=== PATIENT | male | born 1995 | race Two or more races ===

== ENCOUNTER 2019-10-05 00:01 | Emergency (ER) | payer MEDICAID ==
--- NOTE | 2019-10-05 00:23 | ERPHSYRPT ---
- History of Present Illness Source: patient Timing/Duration: yesterday Severity of Symptoms-Max: moderate Severity of Symptoms-Current: moderate Suicidal thoughts: specific plan Associated Symptoms: depressed, ingestion ([place]), suicidal ideation Previous symptoms: same symptoms as today (Suicidal thoughts but never treated or admitted) Hx Tetanus, Diphtheria Vaccination/Date Given: Yes Hx Influenza Vaccination/Date Given: No Hx Pneumococcal Vaccination/Date Given: No <JESSICA GUZMAN - Last Filed: 10/05/19 06:49> <GAEL QUINONEZ - Last Filed: 10/05/19 15:46> - History of Present Illness Time Seen by Provider: 10/05/19 00:18 Physician History: Patient is a 24-year-old male who presents with suicidal ideation. He does have a plan to cut his throat. He has a history of suicidal ideation and depression but has never received treatment or been hospitalized. He claims not to have access to firearms. He denies any ingestion of anything except amount of alcohol earlier in the day and evening he did call [facility] in an attempt to be directly admitted but was instructed to come to this ER for evaluation. (JESSICA GUZMAN) Allergies/Adverse Reactions: No Known Drug Allergies Allergy (Verified 10/05/19 01:21) Home Medications: No Reportable Medications [No Reported Medications] 10/05/19 [History] - Past Medical History Pertinent Past Medical History: Yes Respiratory History: Asthma - Past Surgical History Past Surgical History: No - Social History Smoking Status: Never smoker Exposure to second hand smoke: No Drug Use: none Patient Lives Alone: No <JESSICA GUZMAN - Last Filed: 10/05/19 06:49> - Review of Systems Constitutional: No Fever, No Chills Eyes: No Symptoms Ears, Nose, & Throat: No Symptoms Respiratory: No Cough, No Dyspnea Cardiac: No Chest Pain, No Edema, No Syncope Abdominal/Gastrointestinal: No Abdominal Pain, No Nausea, No Vomiting, No Diarrhea Genitourinary Symptoms: No Dysuria Musculoskeletal: No Back Pain, No Neck Pain Skin: No Rash Neurological: No Dizziness, No Focal Weakness, No Sensory Changes Psychological: Depression, Suicidal Ideations Endocrine: No Symptoms All Other Systems: Reviewed and Negative <JESISCA GUZMAN - Last Filed: 10/05/19 06:49> - Physical Exam General Appearance: moderate distress Eyes, Ears, Nose, Throat Exam: normal ENT inspection, moist mucous membranes Neck Exam: normal inspection, non-tender, supple Respiratory Exam: normal breath sounds, lungs clear, No respiratory distress Cardiovascular Exam: regular rate/rhythm, No edema Gastrointestinal/Abdominal Exam: soft, No tenderness, No distention Extremities Exam: normal inspection, normal range of motion, No evidence of injury, No edema Current Suicidality: denies suicide plan Neurological Exam: alert, 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, oriented x 3, depressed affect Appearance: appropriate appearance, no memory impairment Behavior/Eye Contact/Speech: alert & cooperative, decreased rate of speech, No intoxicated appearance Thoughts/Hallucinations: normal thought pattern Skin Exam: normal color, warm, dry, No rash SpO2 Interpretation: normal O2 Delivery: Room Air <JESSICA GUZMAN - Last Filed: 10/05/19 06:49> - Nursing Vital Signs Nursing Vital Signs: Initial Vital Signs Temperature 98.2 F 10/05/19 00:18 Pulse Rate 96 H 10/05/19 00:18 Respiratory Rate 16 10/05/19 00:18 Blood Pressure 141/96 10/05/19 00:18 O2 Sat by Pulse Oximetry 97 10/05/19 00:18 Pain Scale Pain Intensity 0 - Course Nursing assessment & vital signs reviewed: Yes <JESSICA GUZMAN - Last Filed: 10/05/19 06:49> Ordered Tests: Active Orders 24 hr Category Date Time Status ACETAMINOPHEN Stat Lab 10/05/19 00:30 Completed CBC W DIFF Stat Lab 10/05/19 00:30 Completed CMP Stat Lab 10/05/19 00:30 Completed ETHYL ALCOHOL Stat Lab 10/05/19 00:30 Completed ETHYL ALCOHOL Stat Lab 10/05/19 04:55 Completed SALICYLATE Stat Lab 10/05/19 00:30 Completed UA W/RFX UR CULTURE Stat Lab 10/05/19 00:30 Completed Urine Triage Profile Stat Lab 10/05/19 00:30 Completed Lab/Rad Data: Laboratory Result Diagrams 10/05/19 00:30 10/05/19 00:30 Laboratory Results 10/05/19 10/05/19 10/05/19 Range/Units 04:55 00:30 00:30 WBC (4.0-10.5) K/mm3 RBC (4.1-5.6) M/mm3 Hgb (12.5-18.0) gm/dl Hct (42-50) % MCV (78-100) fl MCH (26-32) pg MCHC (32-36) g/dl RDW (11.5-14.0) % Plt Count (150-450) K/mm3 MPV (7.5-11.0) fl Gran % (36.0-66.0) % Eos # (Auto) (0-0.5) Absolute Lymphs (auto) (1.0-4.6) Absolute Monos (auto) (0.0-1.3) Lymphocytes % (24.0-44.0) % Monocytes % (0.0-12.0) % Eosinophils % (0.00-5.0) % Basophils % (0.0-0.4) % Absolute Granulocytes (1.4-6.9) Basophils # (0-0.4) Sodium (137-145) mmol/L Potassium (3.5-5.1) mmol/L Chloride (98-107) mmol/L Carbon Dioxide (22-30) mmol/L Anion Gap (5-15) MEQ/L BUN (9-20) mg/dL Creatinine (0.66-1.25) mg/dL Estimated GFR ML/MIN Glucose (74-106) mg/dL Calcium (8.4-10.2) mg/dL Total Bilirubin (0.2-1.3) mg/dL AST (17-59) U/L ALT (0-50) U/L Alkaline Phosphatase (38-126) U/L Serum Total Protein (6.3-8.2) g/dL Albumin (3.5-5.0) g/dL Urine Color STRAW (YELLOW) Urine Appearance CLEAR (CLEAR) Urine pH 6.0 (5-6) Ur Specific [place] 1.004 (1.005-1.025) Urine Protein NEGATIVE (Negative) Urine Ketones NEGATIVE (NEGATIVE) Urine Blood NEGATIVE (0-5) Malachi/ul Urine Nitrite NEGATIVE (NEGATIVE) Urine Bilirubin NEGATIVE (NEGATIVE) Urine Urobilinogen NEGATIVE (0-1) mg/dL Ur Leukocyte Esterase NEGATIVE (NEGATIVE) Urine WBC (Auto) NONE (0-5) /HPF Urine RBC (Auto) NONE (0-2) /HPF U Hyaline Cast (Auto) 0-2 (0-2) /LPF U Epithel Cells (Auto) NONE (FEW) /HPF Urine Bacteria (Auto) NONE (NEGATIVE) /HPF Urine Mucus (Auto) SLIGHT (NEGATIVE) /HPF Urine Culture Reflexed NO (NO) Urine Glucose NEGATIVE (NEGATIVE) mg/dL Salicylates (2-20) mg/dL Urine Opiates Level NEGATIVE (NEGATIVE) Ur Methadone NEGATIVE (NEGATIVE) Acetaminophen (10-30) ug/ml Urine Barbiturates NEGATIVE (NEGATIVE) Ur Phencyclidine (PCP) NEGATIVE (NEGATIVE) Urine Amphetamine NEGATIVE (NEGATIVE) U Benzodiazepine Level NEGATIVE (NEGATIVE) Urine Cocaine NEGATIVE (NEGATIVE) Urine Marijuana (THC) NEGATIVE (NEGATIVE) Ethyl Alcohol 88 H (0-10) mg/dL 10/05/19 10/05/19 Range/Units 00:30 00:30 WBC 6.6 (4.0-10.5) K/mm3 RBC 4.72 (4.1-5.6) M/mm3 Hgb 14.0 (12.5-18.0) gm/dl Hct 41.4 L (42-50) % MCV 87.7 (78-100) fl MCH 29.7 (26-32) pg MCHC 33.8 (32-36) g/dl RDW 13.9 (11.5-14.0) % Plt Count 349 (150-450) K/mm3 MPV 10.2 (7.5-11.0) fl Gran % 43.4 (36.0-66.0) % Eos # (Auto) 0.29 (0-0.5) Absolute Lymphs (auto) 2.65 (1.0-4.6) Absolute Monos (auto) 0.76 (0.0-1.3) Lymphocytes % 40.2 (24.0-44.0) % Monocytes % 11.5 (0.0-12.0) % Eosinophils % 4.4 (0.00-5.0) % Basophils % 0.5 (0.0-0.4) % Absolute Granulocytes 2.86 (1.4-6.9) Basophils # 0.03 (0-0.4) Sodium 144 (137-145) mmol/L Potassium 3.5 (3.5-5.1) mmol/L Chloride 111 H (98-107) mmol/L Carbon Dioxide 23 (22-30) mmol/L Anion Gap 14.0 (5-15) MEQ/L BUN 8 L (9-20) mg/dL Creatinine 0.80 (0.66-1.25) mg/dL Estimated GFR > 60.0 ML/MIN Glucose 98 (74-106) mg/dL Calcium 9.3 (8.4-10.2) mg/dL Total Bilirubin 0.40 (0.2-1.3) mg/dL AST 32 (17-59) U/L ALT 22 (0-50) U/L Alkaline Phosphatase 84 (38-126) U/L Serum Total Protein 7.2 (6.3-8.2) g/dL Albumin 4.2 (3.5-5.0) g/dL Urine Color (YELLOW) Urine Appearance (CLEAR) Urine pH (5-6) Ur Specific [place] (1.005-1.025) Urine Protein (Negative) Urine Ketones (NEGATIVE) Urine Blood (0-5) Malachi/ul Urine Nitrite (NEGATIVE) Urine Bilirubin (NEGATIVE) Urine Urobilinogen (0-1) mg/dL Ur Leukocyte Esterase (NEGATIVE) Urine WBC (Auto) (0-5) /HPF Urine RBC (Auto) (0-2) /HPF U Hyaline Cast (Auto) (0-2) /LPF U Epithel Cells (Auto) (FEW) /HPF Urine Bacteria (Auto) (NEGATIVE) /HPF Urine Mucus (Auto) (NEGATIVE) /HPF Urine Culture Reflexed (NO) Urine Glucose (NEGATIVE) mg/dL Salicylates 1.0 L (2-20) mg/dL Urine Opiates Level (NEGATIVE) Ur Methadone (NEGATIVE) Acetaminophen < 10 L (10-30) ug/ml Urine Barbiturates (NEGATIVE) Ur Phencyclidine (PCP) (NEGATIVE) Urine Amphetamine (NEGATIVE) U Benzodiazepine Level (NEGATIVE) Urine Cocaine (NEGATIVE) Urine Marijuana (THC) (NEGATIVE) Ethyl Alcohol 161 H (0-10) mg/dL - Progress Progress: unchanged <JESSICA GUZMAN - Last Filed: 10/05/19 06:49> - Progress Progress: improved, re-examined Counseled pt/family regarding: diagnosis, need for follow-up <GAEL QUINONEZ - Last Filed: 10/05/19 15:46> - Progress Progress Note: 10/05/19 patient is checked out to me at end of Dr. Guzman shift with pending [facility]/psych evaluation. On my evaluation patient reports that he has been going through a lot recently and that make him angry and that is why he thought about committing suicide but he does not want to do it now. Also patient was intoxicated on presentation. Asked patient and his girlfriend multiple times in different ways and patient denied any suicidal intent now. As per girlfriend patient started drinking last night and his suicidal thoughts got worse. But currently he is not. [facility] has evaluated patient and do not think patient is an imminent threat to himself or anyone else. He has a good support system with his girlfriend who will take her home and will watch her. He signed a safety contract and is being discharged with outpatient [facility] follow-up. This with patient and girlfriend detail about symptoms/signs of worsening needing return to ER or call 911 which do seem understanding. (GAEL QUINONEZ) <JESSICA GUZMAN - Last Filed: 10/05/19 06:49> - Departure Departure Disposition: Home Critical Care Time: No <GAEL QUINONEZ - Last Filed: 10/05/19 15:46> - Departure Clinical Impression: Depressive disorder, Alcohol abuse Condition: Stable Referrals: DOCTOR,NO FAMILY [Primary Care Provider] - DESHAUN POPE [ACTIVE STAFF] - (Call for appointment in 1 to 2 days.) Instructions: Depression, Adult (DC), Suicide Prevention Additional Instructions: Call [facility] for appointment in 1 to 2 days at [phone]. Follow-up with primary care physician for reevaluation in 1 to 2 days. Call 911 or return to ER if again has worsening depressive symptoms or suicidal ideations/ plans. Cut down on your drinking.
[2019-10-05 00:36] LABS: Absolute Neutrophil Ct (ANC) 2.86 (1.4-6.9); BASOPHIL % 0.5 % (0.0-0.4); Basophil (Absolute #) 0.03 (0-0.4); Eosinophil % 4.4 % (0.00-5.0); Eosinophil (Absolute #) 0.29 (0-0.5); Hematocrit 41.4 % (42-50); Lymphocyte (Absolute #) 2.65 (1.0-4.6); Lymphocytes % 40.2 % (24.0-44.0); Mean Cell Volume 87.7 fl (78-100); Mean Corpuscular Hemoglobin 29.7 pg (26-32); Mean Corpuscular Hgb Concent. 33.8 g/dl (32-36); Mean Platelet Volume 10.2 fl (7.5-11.0); Monocyte (Absolute #) 0.76 (0.0-1.3); Monocytes % 11.5 % (0.0-12.0); Neutrophil % 43.4 % (36.0-66.0); Platelet Count 349 K/mm3 (150-450); Red Blood Count 4.72 M/mm3 (4.1-5.6); Red Cell Distribution Width 13.9 % (11.5-14.0); White Blood Count 6.6 K/mm3 (4.0-10.5)
[2019-10-05 00:55] LABS: ALBUMIN 4.2 g/dL (3.5-5.0); ALKALINE PHOSPHATASE 84 U/L (38-126); BLOOD UREA NITROGEN 8 mg/dL (9-20); CHLORIDE 111 mmol/L (98-107); Calcium 9.3 mg/dL (8.4-10.2); Carbon Dioxide 23 mmol/L (22-30); ETHYL ALCOHOL 161 mg/dL (0-10); Glucose 98 mg/dL (74-106); Potassium 3.5 mmol/L (3.5-5.1); SGOT/AST 32 U/L (17-59); SGPT/ALT 22 U/L (0-50); SODIUM 144 mmol/L (137-145); Total Protein 7.2 g/dL (6.3-8.2)
[2019-10-05 00:56] LABS: Appearance CLEAR (CLEAR); Bilirubin NEGATIVE (NEGATIVE); Blood NEGATIVE Ery/ul (0-5); Glucose NEGATIVE (NEGATIVE); Hyaline Casts 0-2 /LPF (0-2); Ketones NEGATIVE (NEGATIVE); Leukocyte Esterase NEGATIVE (NEGATIVE); Mucus SLIGHT /HPF (NEGATIVE); Nitrite NEGATIVE (NEGATIVE); Protein,Urine Dip NEGATIVE (Negative); Specific Gravity 1.004 (1.005-1.025); Urobilinogen NEGATIVE mg/dL (0-1)
[2019-10-05 01:01] LABS: ACETAMINOPHEN < 10 ug/ml (10-30)
[2019-10-05 01:04] LABS: Amphetamine,Urine NEGATIVE (NEGATIVE); Barbiturate,Urine NEGATIVE (NEGATIVE); Benzodiazepine,Urine NEGATIVE (NEGATIVE); Cocaine,Urine NEGATIVE (NEGATIVE); Methadone,Urine NEGATIVE (NEGATIVE); Opiate,Urine NEGATIVE (NEGATIVE); PCP,Urine NEGATIVE (NEGATIVE); THC,Urine NEGATIVE (NEGATIVE)
[2019-10-05 10:01] VITALS: BP 115/67; PULSE 71; O2SAT 95
== END 2019-10-05 10:13 | disposition home or self-care (01) ==
LOC: ED 00:01
DX: F32.9 Major depressive disorder, single episode, unspecified (principal); F10.10 Alcohol abuse, uncomplicated
CPT/HCPCS: 36415; 80053; 80307; 81001; 85025; 90791; 99284; G0481; G0480

== ENCOUNTER 2019-11-09 23:14 | Emergency (ER) | payer MEDICAID, OTHER ==
[2019-11-09 23:34] VITALS: O2SAT 98
--- NOTE | 2019-11-10 00:42 | ERPHSYRPT ---
- History of Present Illness Time Seen by Provider: 11/09/19 23:30 Source: patient Exam Limitations: no limitations Patient Subjective Stated Complaint: pt states he shut his rt hand in the door yesterday. states he is having pain in the 2nd, 3rd, 4th digits Triage Nursing Assessment: pt alert and oreinted, answers questions approp. pt ambulatory with steady gait noted. respirations nonlabored with lungs cta. bruising, swelling, and abrasions noted to lt hand 2nd, 3rd, 4th digits. pt reports increased pain with movement or palpation. Physician History: Patient is a 24-year-old male presents to our ED with pain to his left second third and fourth digit. Patient states he closed a door onto his hand yesterday. Patient awoke this morning and stated his fingers felt sore. No other injuries reported. Pain described as an ache that is well localized. No radiation. Pain worsened with movement and palpation. Pain improved with rest. Tetanus is up-to-date. Patient otherwise generally healthy. He voices no other complaints at this time. Occurred: yesterday Quality: constant Severity of Pain-Max: mild Severity of Pain-Current: mild Extremities Pain Location: 2nd finger: left, 3rd finger: left, 4th finger: left Modifying Factors: Improves With: movement Associated Symptoms: none Allergies/Adverse Reactions: No Known Drug Allergies Allergy (Verified 11/09/19 23:34) Home Medications: No Reportable Medications [No Reported Medications] 10/05/19 [History] Hx Tetanus, Diphtheria Vaccination/Date Given: Yes Hx Influenza Vaccination/Date Given: Yes Hx Pneumococcal Vaccination/Date Given: No Immunizations Up to Date: Yes Travel Risk - International Travel Have you traveled outside of the country in past 3 weeks: No Have you or anyone close to you been diagnosed with or: No Do your reside in a community with a known COVID-19 case?: Yes If Yes where:: [facility] - Coronavirus Screening Has patient experienced Coronavirus symptoms: No - Review of Systems Constitutional: No Fever, No Chills Eyes: No Symptoms Ears, Nose, & Throat: No Symptoms Respiratory: No Symptoms, No Cough, No Dyspnea Cardiac: No Symptoms, No Chest Pain, No Edema, No Syncope Abdominal/Gastrointestinal: No Symptoms, No Abdominal Pain, No Nausea, No Vomiting, No Diarrhea Genitourinary Symptoms: No Symptoms, No Dysuria Musculoskeletal: No Symptoms, No Back Pain, No Neck Pain Skin: No Symptoms, No Rash Neurological: No Symptoms, No Dizziness, No Focal Weakness, No Sensory Changes Psychological: No Symptoms Endocrine: No Symptoms Hematologic/Lymphatic: No Symptoms Immunological/Allergic: No Symptoms All Other Systems: Reviewed and Negative - Past Medical History Pertinent Past Medical History: Yes Neurological History: Alzheimer's Disease ENT History: No Pertinent History Cardiac History: No Pertinent History Respiratory History: Asthma Endocrine Medical History: No Pertinent History Musculoskeletal History: No Pertinent History GI Medical History: No Pertinent History History: No Pertinent History Psycho-Social History: Depression Male Reproductive Disorders: No Pertinent History - Past Surgical History Past Surgical History: No Neuro Surgical History: No Pertinent History Cardiac: No Pertinent History Respiratory: No Pertinent History Gastrointestinal: No Pertinent History Genitourinary: No Pertinent History Musculoskeletal: No Pertinent History Male Surgical History: No Pertinent History - Social History Smoking Status: Current every day smoker How long have you smoked: 7yrs Exposure to second hand smoke: No Drug Use: none Patient Lives Alone: No - Nursing Vital Signs Nursing Vital Signs: Initial Vital Signs Temperature 98.7 F 11/09/19 23:21 Pulse Rate 77 11/09/19 23:21 Respiratory Rate 18 11/09/19 23:21 Blood Pressure 145/75 11/09/19 23:21 O2 Sat by Pulse Oximetry 98 11/09/19 23:21 Pain Scale Pain Intensity 8 - Physical Exam General Appearance: alert Eyes, Ears, Nose, Throat Exam: moist mucous membranes Neck Exam: non-tender, supple Cardiovascular/Respiratory Exam: chest non-tender, normal breath sounds, regular rate/rhythm, no respiratory distress Abdominal Exam: non-tender, No guarding Back Exam: normal inspection, No vertebral tenderness Shoulder Exam: normal inspection Elbow/Forearm Exam: normal inspection Wrist Exam: normal inspection Neuro/Tendon Exam: normal sensation, normal motor functions Mental Status Exam: alert, oriented x 3, cooperative Skin Exam: normal color, warm, dry, other (Superficial skin abrasions along the second third and fourth digit. No indication for suture repair. Tendons are intact in both flexion and extension of all digits of the involved extremity.) SpO2 Interpretation: normal SpO2: 98 O2 Delivery: Room Air - Radiology Exams Hand X-ray Interpretation: Interpreted by me (No fracture or dislocation.) Ordered Tests: Active Orders 24 hr Category Date Time Status Isolation, Initiate & Maintain Q12H Care 11/09/19 23:34 Active HAND (MINIMUM 3 VIEWS) Stat Exams 11/10/19 00:18 Ordered Medication Summary Discontinued Medications Generic Name Dose Route Start Last Admin Trade Name Brittani PRN Reason Stop Dose Admin Ibuprofen 600 mg 11/10/19 00:43 11/10/19 00:50 Motrin 600 Mg PO 11/10/19 00:44 600 mg STAT ONE Administration Ibuprofen Confirm 11/10/19 00:49 Motrin 600 Mg Administered 11/10/19 00:50 Dose 600 mg .ROUTE .STKeepFu-MED ONE - Progress Progress: improved Progress Note: 11/10/19 00:55 Patient reassessed. Pain improved after administration of ibuprofen. Wounds were irrigated cleaned and dressed with a sterile dressing by RN. X-ray negative for acute fracture dislocation. Patient will be sent to the orthopedic clinic for reevaluation. Plan of care discussed with patient. He agrees to follow-up as recommended. Patient voices no other complaints at this time. Counseled pt/family regarding: diagnosis, need for follow-up, rad results - Departure Departure Disposition: Home Clinical Impression: Contusion, fingers Condition: Stable Critical Care Time: No Referrals: DOCTOR,NO FAMILY [Primary Care Provider] - Additional Instructions: Discharge/Care Plan VIRGILIOCAMPOS PORTILLO was seen on 11/10/19 in the Emergency Room. The patient was counseled regarding Diagnosis,Lab results, Imaging studies, need for follow up and when to return to the Emergency Room. Prescriptions given: Discharge Note I have spoken with the patient and/or caregivers. I have explained the patient' s condition, diagnosis and treatment plan based on the information available to me at this time. I have answered the patient's and/or caregiver's questions and addressed any concerns. The patient and/or caregivers have as good understanding of the patient's diagnosis, condition and treatment plan as can be expected at this point. The vital signs have been stable. The patient's condition is stable and appropriate for discharge from the emergency department. The patient will pursue further outpatient evaluation with the primary care physician or other designated or consulting physician as outlined in the discharge instructions. The patient and/or caregivers are agreeable to this plan of care and follow-up instructions have been explained in detail. The patient and/or caregivers have received these instruction. The patient/and or caregivers are aware that any significant change in condition or worsening of symptoms should prompt an immediate return to this or the closest emergency department or call 911. Outpatient Orders: Ortho Referral Time Frame: 1 Day, Location: [facility]THO CLINIC
[2019-11-10] MEDS ORDERED: MOTRIN 600 MG PO ONE (00:43)
[2019-11-10] MEDS ORDERED: MOTRIN 600 MG ONE (00:49)
[2019-11-10 01:15] VITALS: BP 137/72; PULSE 64
--- NOTE | 2019-11-10 07:35 | XRAY ---
Indication: Crush injury. Comparison: None 3 views of the left hand obtained. No bony, articular, or soft tissue abnormalities.
== END 2019-11-10 01:22 | disposition home or self-care (01) ==
LOC: ED 23:14
DX: S60.021A Contusion of right index finger without damage to nail, initial encounter (principal); S60.031A Contusion of right middle finger without damage to nail, initial encounter; S60.041A Contusion of right ring finger without damage to nail, initial encounter; W23.1XXA Caught, crushed, jammed, or pinched between stationary objects, initial encounter; Y93.89 Activity, other specified; G30.9 Alzheimer's disease, unspecified; F02.80 Dementia in other diseases classified elsewhere, unspecified severity, without behavioral disturbance, psychotic disturbance, mood disturbance, and anxiety; J45.909 Unspecified asthma, uncomplicated; F32.9 Major depressive disorder, single episode, unspecified; Z72.0 Tobacco use
CPT/HCPCS: 73130; 99283; A9270-GY

== ENCOUNTER 2021-02-15 17:26 | Emergency (ER) | payer MEDICAID, OTHER ==
--- NOTE | 2021-02-15 18:30 | ERPHSYRPT ---
- History of Present Illness Time Seen by Provider: 02/15/21 17:31 Source: patient Exam Limitations: no limitations Patient Subjective Stated Complaint: R hand pain Triage Nursing Assessment: pt to ED c/o R hand pain r/t hitting it on something hard at work today. pt also reports he punched a stud a few months ago which caused this same pain. was not evaluated at that time. pain and swelling went away in its own. today 4th and 5th knuckles on R hand are swollen again and causing 6/10 throbbing pain. Physician History: 25 years old right-handed dominant -[place] male presented in the ER with chief complaint of right hand pain after he punched while at work. Patient reports he did punch couple months ago and had swelling pain in the fifth metacarpal/knuckle but did not seek any medical attention and it improved on its own. Today he punched again with increasing pain and swelling in the fourth and fifth digit. Occurred: this afternoon Method of Injury: direct blow Quality: sharpness Severity of Pain-Max: moderate Severity of Pain-Current: mild Extremities Pain Location: hand: right Modifying Factors: Improves With: cold therapy, immobilization. Worsens With: movement Associated Symptoms: none Allergies/Adverse Reactions: No Known Drug Allergies Allergy (Verified 02/15/21 17:43) Hx Tetanus, Diphtheria Vaccination/Date Given: No Hx Influenza Vaccination/Date Given: Yes Hx Pneumococcal Vaccination/Date Given: No Immunizations Up to Date: No Travel Risk - International Travel Have you traveled outside of the country in past 3 weeks: No - Coronavirus Screening Are you exhibiting any of the following symptoms?: No Close contact with a COVID-19 positive Pt in past 14-21 Days: No - Vaccine Status Have you recieved a Covid-19 vaccination: No - Review of Systems Constitutional: No Symptoms Respiratory: No Symptoms Cardiac: No Symptoms Abdominal/Gastrointestinal: No Symptoms Musculoskeletal: Injury, Joint Pain, Joint Swelling Skin: No Symptoms Psychological: No Symptoms Endocrine: No Symptoms Hematologic/Lymphatic: No Symptoms - Past Medical History Pertinent Past Medical History: Yes Neurological History: No Pertinent History ENT History: No Pertinent History Cardiac History: No Pertinent History Respiratory History: Asthma Endocrine Medical History: No Pertinent History Musculoskeletal History: No Pertinent History GI Medical History: No Pertinent History History: No Pertinent History Psycho-Social History: Depression Male Reproductive Disorders: No Pertinent History - Past Surgical History Past Surgical History: No Neuro Surgical History: No Pertinent History Cardiac: No Pertinent History Respiratory: No Pertinent History Gastrointestinal: No Pertinent History Genitourinary: No Pertinent History Musculoskeletal: No Pertinent History Male Surgical History: No Pertinent History - Social History Smoking Status: Current every day smoker How long have you smoked: 7yrs Exposure to second hand smoke: No Drug Use: none Patient Lives Alone: No - Nursing Vital Signs Nursing Vital Signs: Initial Vital Signs Temperature 97.7 F 02/15/21 17:37 Pulse Rate 75 02/15/21 17:37 Respiratory Rate 18 02/15/21 17:37 Blood Pressure 137/66 02/15/21 17:37 O2 Sat by Pulse Oximetry 98 02/15/21 17:37 Pain Scale Pain Intensity 6 - Physical Exam General Appearance: no apparent distress, alert Neck Exam: normal inspection, supple, full range of motion Cardiovascular/Respiratory Exam: normal breath sounds, regular rate/rhythm Elbow/Forearm Exam: normal inspection, non-tender, no evidence of injury, normal ROM Wrist Exam: normal inspection, non-tender, no evidence of injury, normal ROM Hand Exam: bone tenderness, limited ROM (Fourth and fifth right hand digit at metacarpophalangeal joint with swelling around the fifth. Intact distal neurovascular.), soft tissue tenderness, swelling Neuro/Tendon Exam: normal sensation, normal motor functions, normal tendon functions Mental Status Exam: alert, oriented x 3 Skin Exam: normal color SpO2 Interpretation: normal SpO2: 98 O2 Delivery: Room Air Ordered Tests: Active Orders 24 hr Category Date Time Status HAND (MINIMUM 3 VIEWS) Stat Exams 02/15/21 18:31 Taken - Progress Progress: unchanged Progress Note: 02/15/21 18:42 He is offered pain medication which she refused. X-rays reviewed by me did not reveal any obvious fracture dislocation in the medical. Because of his pain we will put him in the ulnar gutter splint and have him outpatient follow-up with orthopedic surgery for reevaluation. Tylenol ibuprofen for symptomatic relief. Counseled pt/family regarding: diagnosis, rad results - Departure Departure Disposition: Home Clinical Impression: Hand contusion Qualifiers: Encounter type: initial encounter Laterality: right Qualified Code(s): S60.221A - Contusion of right hand, initial encounter Condition: Stable Critical Care Time: No Referrals: DOCTOR,NO FAMILY [Primary Care Provider] - ORTHO - ROZINA,DAHLIA, [employer] [NON-STAFF PHY W/O PRIVILEGES] - (Tomorrow for reevaluation) Instructions: Boxer's Fracture (DC), Hand Fracture (DC) Additional Instructions: Tylenol/ibuprofen as needed for pain. Avoid exertional activities. Follow-up with Ortho clinic for reevaluation in 1 to 2 days. Return to ER for worsening pain swelling difficulty movements of finger etc. Prescriptions: Ibuprofen 600 mg PO Q6HPRN PRN 10 Days #20 tablet PRN Reason: Pain
[2021-02-15 19:02] VITALS: BP 126/71; PULSE 72; O2SAT 99
--- NOTE | 2021-02-16 08:43 | XRAY ---
Indication: Pain following injury. Comparison: October 29, 2014. 3 view right hand obtained. No bony, articular, or soft tissue abnormalities.
== END 2021-02-15 19:08 | disposition home or self-care (01) ==
LOC: ED 17:26
DX: S60.221A Contusion of right hand, initial encounter (principal); M79.641 Pain in right hand; W22.09XA Striking against other stationary object, initial encounter; Y93.89 Activity, other specified; Y92.63 Factory as the place of occurrence of the external cause
CPT/HCPCS: 73130; 99283

== ENCOUNTER 2022-01-26 13:29 | Emergency (ER) | payer MEDICAID, OTHER ==
[2022-01-26 13:50] VITALS: BP 135/78; PULSE 72
--- NOTE | 2022-01-26 13:52 | ERPHSYRPT ---
- History of Present Illness Time Seen by Provider: 01/26/22 13:49 Source: patient Exam Limitations: no limitations Physician History: Patient is a 26-year-old male who was uncertain of how he injured his left wrist 2 nights ago but he awoke with it swollen and very painful. His injury is not known to him. He has iced it and elevated and a lot of the swelling has gone down but there is still pain generally in the left wrist. Occurred: days ago (2 days ago) Method of Injury: unknown Quality: aching, throbbing Severity of Pain-Max: moderate Severity of Pain-Current: moderate Extremities Pain Location: wrist: left Modifying Factors: Improves With: movement Associated Symptoms: none Allergies/Adverse Reactions: No Known Drug Allergies Allergy (Verified 01/26/22 13:41) Hx Tetanus, Diphtheria Vaccination/Date Given: No Hx Influenza Vaccination/Date Given: Yes Hx Pneumococcal Vaccination/Date Given: No Travel Risk - Vaccine Status Have you recieved a Covid-19 vaccination: No - Review of Systems Constitutional: No Fever, No Chills Eyes: No Symptoms Ears, Nose, & Throat: No Symptoms Respiratory: No Cough, No Dyspnea Cardiac: No Chest Pain, No Edema, No Syncope Abdominal/Gastrointestinal: No Abdominal Pain, No Nausea, No Vomiting, No Diarrhea Genitourinary Symptoms: No Dysuria Musculoskeletal: No Back Pain, No Neck Pain Skin: No Rash Neurological: No Dizziness, No Focal Weakness, No Sensory Changes Psychological: No Symptoms Endocrine: No Symptoms All Other Systems: Reviewed and Negative - Past Medical History Pertinent Past Medical History: Yes Neurological History: No Pertinent History ENT History: No Pertinent History Cardiac History: No Pertinent History Respiratory History: Asthma Endocrine Medical History: No Pertinent History Musculoskeletal History: No Pertinent History GI Medical History: No Pertinent History History: No Pertinent History Psycho-Social History: Depression Male Reproductive Disorders: No Pertinent History - Past Surgical History Past Surgical History: No Neuro Surgical History: No Pertinent History Cardiac: No Pertinent History Respiratory: No Pertinent History Gastrointestinal: No Pertinent History Genitourinary: No Pertinent History Musculoskeletal: No Pertinent History Male Surgical History: No Pertinent History - Social History Smoking Status: Current every day smoker How long have you smoked: 7yrs Exposure to second hand smoke: No Drug Use: none Patient Lives Alone: No - Nursing Vital Signs Nursing Vital Signs: Initial Vital Signs Temperature 97.9 F 01/26/22 13:41 Pulse Rate 72 01/26/22 13:41 Respiratory Rate 18 01/26/22 13:41 Blood Pressure 135/78 01/26/22 13:41 O2 Sat by Pulse Oximetry 97 01/26/22 13:41 Pain Scale Pain Intensity 7 - Physical Exam General Appearance: mild distress, alert Eyes, Ears, Nose, Throat Exam: normal ENT inspection Neck Exam: normal inspection, non-tender, supple Cardiovascular/Respiratory Exam: no respiratory distress Back Exam: normal inspection, No vertebral tenderness Shoulder Exam: normal inspection, non-tender Elbow/Forearm Exam: normal inspection, non-tender Wrist Exam: bone tenderness, soft tissue tenderness, swelling Hand Exam: normal inspection, non-tender Neuro/Tendon Exam: normal sensation, normal motor functions Mental Status Exam: alert, oriented x 3, cooperative Skin Exam: normal color, warm, dry SpO2 Interpretation: normal SpO2: 99 O2 Delivery: Room Air Procedures - Splinting Time of Procedure: 14:12 Location of Splint: Left, Wrist Type of Splint: Velcro Splint Splint Applied By: ED Nurse Pre-Proc Neuro Vasc Exam: normal Post-Proc Neuro Vasc Exam: neurovascular intact - Course Nursing assessment & vital signs reviewed: Yes - Radiology Exams Left Wrist X-ray Interpretation: Negative Ordered Tests: Active Orders 24 hr Category Date Time Status Cold Application STAT Care 01/26/22 13:45 Active WRIST (MIN 3 VIEWS) Stat Exams 01/26/22 13:45 Completed - Progress Progress: unchanged - Departure Departure Disposition: Home Clinical Impression: Left wrist sprain Condition: Stable Critical Care Time: No Referrals: DOCTOR,NO FAMILY [Primary Care Provider] - Follow up/PCP as directed Instructions: Wrist Sprain (DC) Prescriptions: Diclofenac Sodium 50 mg [Voltaren 50 mg] 50 mg PO TID 5 Days #15 cap
[2022-01-26 13:53] VITALS: O2SAT 99
--- NOTE | 2022-01-26 14:10 | XRAY ---
Indication: Pain following fall. Comparison: None 3 view left wrist obtained. No bony, articular, or soft tissue abnormalities.
== END 2022-01-26 14:25 | disposition home or self-care (01) ==
LOC: ED 13:29
DX: S63.502A Unspecified sprain of left wrist, initial encounter (principal); M25.532 Pain in left wrist; Z72.0 Tobacco use; Z28.310 Unvaccinated for COVID-19
CPT/HCPCS: 73110; 99283; L3908